=== PATIENT | female | born 1970 | race Hispanic/Latino ===

== ENCOUNTER 2019-08-20 22:51 | Emergency (ER) | payer SELFPAY ==
[2019-08-20] MEDS ORDERED: SODIUM CHLORIDE 0.9% 1000 ML 1,000 ML IV ONE (23:08)
--- NOTE | 2019-08-20 23:15 | Emergency Department Report ---
ED General Adult HPI - General Stated complaint: FLU SYMPTOMS Time Seen by Provider: 08/20/19 23:07 Source: patient, old records reviewed Mode of arrival: Ambulatory Limitations: No Limitations - History of Present Illness Initial comments: Ms. Nj is a 48 yo female with history of schizoaffective disorder bipolar type and neuropathy who presents from [facility] for elevated heart rate in the 130s- 150s prior to arrival. She is currently on involuntary hold 1013 for acute psychosis. She has had a back pain generalized malaise. I have reviewed outpatient labs obtained 2 days ago, notable for hypokalemia 3.0 and anion gap 21 urinalysis appeared contaminated.Tox drug screen normal. normal. Had a fever 100.1 F at [facility] according to nurse report given Tylenol 650 mg prior to arrival. Normally takes gabapentin for neuropathic pain Medications include Seroquel Cymbalta Depakote -: Gradual, days(s) (1) Location: chest (fast heartbeat), back Consistency: constant Improves with: none Worsens with: none Associated Symptoms: headaches, malaise Treatments Prior to Arrival: none - Related Data Allergies Allergy/AdvReac Type Severity Reaction Status Date / Time No Known Allergies Allergy Unverified 08/20/19 23:32 ED Review of Systems ROS: Stated complaint: FLU SYMPTOMS Other details as noted in HPI Comment: All other systems reviewed and negative Constitutional: malaise ENT: throat pain Respiratory: cough Gastrointestinal: nausea, diarrhea Neurological: headache ED Past Medical Hx - Past Medical History Previous Medical History?: Yes Additional medical history: Schizoaffective disorder bipolar type, neuropathy - Surgical History Past Surgical History?: Yes Additional Surgical History: Breasts lift 2 ED Physical Exam - General General appearance: alert, in no apparent distress - Head Head exam: Present: atraumatic, normocephalic - Eye Eye exam: Present: normal appearance. Absent: scleral icterus, conjunctival injection - ENT ENT exam: Present: mucous membranes moist - Neck Neck exam: Present: normal inspection, full ROM - Respiratory Respiratory exam: Present: normal lung sounds bilaterally. Absent: respiratory distress, wheezes, rales, rhonchi - Cardiovascular Cardiovascular Exam: Present: normal rhythm, tachycardia. Absent: normal heart sounds, systolic murmur, diastolic murmur, rubs, gallop - GI/Abdominal GI/Abdominal exam: Present: soft, normal bowel sounds. Absent: distended, tenderness, guarding, rebound - Extremities Exam Extremities exam: Present: normal inspection - Neurological Exam Neurological exam: Present: alert, oriented X3 - Psychiatric Psychiatric exam: Present: normal mood, flat affect - Skin Skin exam: Present: warm, dry, intact, normal color. Absent: rash ED Course Vital Signs 08/20/19 08/20/19 08/20/19 23:14 23:30 23:35 Temperature 99.2 F Respiratory Rate Blood Pressure 95/65 O2 Sat by Pulse 98 98 Oximetry 08/21/19 08/21/19 08/21/19 00:00 00:40 01:00 Temperature Respiratory Rate Blood Pressure 88/58 95/65 95/65 O2 Sat by Pulse 100 100 Oximetry 08/21/19 08/21/19 08/21/19 01:15 01:30 02:00 Temperature Respiratory 18 Rate Blood Pressure 88/58 117/76 O2 Sat by Pulse 100 100 Oximetry 08/21/19 08/21/19 02:30 03:00 Temperature Respiratory Rate Blood Pressure 117/79 117/79 O2 Sat by Pulse 99 Oximetry ED Medical Decision Making - Lab Data Result diagrams: 08/20/19 23:19 08/20/19 23:19 Laboratory Results - last 24 hr 08/20/19 08/20/19 08/20/19 23:19 23:19 23:19 WBC 9.3 RBC 4.39 Hgb 13.4 Hct 39.8 MCV 91 MCH 31 MCHC 34 RDW 14.7 Plt Count 234 Lymph % (Auto) 13.7 [place] % (Auto) 4.3 Eos % (Auto) 0.0 Baso % (Auto) 0.3 Lymph # 1.3 [place] # 0.4 Eos # 0.0 Baso # 0.0 Seg Neutrophils % 81.7 H Seg Neutrophils # 7.6 D-Dimer Sodium 138 Potassium 3.4 L Chloride 100.4 Carbon Dioxide 19 L Anion Gap 22 BUN 17 Creatinine 0.7 Estimated GFR > 60 BUN/Creatinine Ratio 24 Glucose 108 H Calcium 9.1 Total Bilirubin 0.40 AST 16 ALT 7 Alkaline Phosphatase 47 Total Protein 6.6 Albumin 4.2 Albumin/Globulin Ratio 1.8 TSH Urine Color Urine Turbidity Urine pH Ur Specific [place] Urine Protein Urine Glucose (UA) Urine Ketones Urine Blood Urine Nitrite Ur Reducing Substances Urine Bilirubin Urine Ictotest Urine Urobilinogen Ur Leukocyte Esterase Urine WBC (Auto) Urine RBC (Auto) U Epithel Cells (Auto) Urine Bacteria (Auto) Hyaline Casts Urine Mucus Urine Opiates Screen Urine Methadone Screen Ur Barbiturates Screen Valproic Acid 57.9 Ur Phencyclidine Scrn Ur Amphetamines Screen U Benzodiazepines Scrn Urine Cocaine Screen U Marijuana (THC) Screen Drugs of Abuse Note Influenza A (Rapid) Influenza B (Rapid) 08/20/19 08/20/19 08/21/19 23:19 Unknown 01:07 WBC RBC Hgb Hct MCV MCH MCHC RDW Plt Count Lymph % (Auto) [place] % (Auto) Eos % (Auto) Baso % (Auto) Lymph # [place] # Eos # Baso # Seg Neutrophils % Seg Neutrophils # D-Dimer 1072.96 H Sodium Potassium Chloride Carbon Dioxide Anion Gap BUN Creatinine Estimated GFR BUN/Creatinine Ratio Glucose Calcium Total Bilirubin AST ALT Alkaline Phosphatase Total Protein Albumin Albumin/Globulin Ratio TSH 4.030 Urine Color Urine Turbidity Urine pH Ur Specific [place] Urine Protein Urine Glucose (UA) Urine Ketones Urine Blood Urine Nitrite Ur Reducing Substances Urine Bilirubin Urine Ictotest Urine Urobilinogen Ur Leukocyte Esterase Urine WBC (Auto) Urine RBC (Auto) U Epithel Cells (Auto) Urine Bacteria (Auto) Hyaline Casts Urine Mucus Urine Opiates Screen Urine Methadone Screen Ur Barbiturates Screen Valproic Acid Ur Phencyclidine Scrn Ur Amphetamines Screen U Benzodiazepines Scrn Urine Cocaine Screen U Marijuana (THC) Screen Drugs of Abuse Note Influenza A (Rapid) Negative Influenza B (Rapid) Negative 08/21/19 08/21/19 01:30 01:30 WBC RBC Hgb Hct MCV MCH MCHC RDW Plt Count Lymph % (Auto) [place] % (Auto) Eos % (Auto) Baso % (Auto) Lymph # [place] # Eos # Baso # Seg Neutrophils % Seg Neutrophils # D-Dimer Sodium Potassium Chloride Carbon Dioxide Anion Gap BUN Creatinine Estimated GFR BUN/Creatinine Ratio Glucose Calcium Total Bilirubin AST ALT Alkaline Phosphatase Total Protein Albumin Albumin/Globulin Ratio TSH Urine Color Yellow Urine Turbidity Clear Urine pH 5.0 Ur Specific [place] 1.008 Urine Protein <15 mg/dl Urine Glucose (UA) Neg Urine Ketones Neg Urine Blood Neg Urine Nitrite Neg Ur Reducing Substances Not Reportable Urine Bilirubin Neg Urine Ictotest Not Reportable Urine Urobilinogen < 2.0 Ur Leukocyte Esterase Neg Urine WBC (Auto) 2.0 Urine RBC (Auto) 3.0 U Epithel Cells (Auto) 1.0 Urine Bacteria (Auto) 2+ Hyaline Casts 1 Urine Mucus Few Urine Opiates Screen Presumptive negative Urine Methadone Screen Presumptive negative Ur Barbiturates Screen Presumptive negative Valproic Acid Ur Phencyclidine Scrn Presumptive negative Ur Amphetamines Screen Presumptive negative U Benzodiazepines Scrn Presumptive negative Urine Cocaine Screen Presumptive negative U Marijuana (THC) Screen Presumptive negative Drugs of Abuse Note Disclamer Influenza A (Rapid) Influenza B (Rapid) - EKG Data 08/20/19 23:39 EKG obtained 2336 Sinus tachycardia rate 125 bpm normal axis prolonged QT interval no ST elevation nonspecific T wave pattern - Radiology Data Radiology results: report reviewed - Medical Decision Making Ms. Nj presents with tachycardia. Extensive evaluation in the ED ruled out sepsis, thyrotoxicosis, PE, infection such UTI, pneumonia, flu, suspect medication withdrawal ?gabapentin. Transferred back to [facility] and pain medication did improved HR in the ED Workup otherwise negative for the exception of mildly elevated d-dimer Critical care attestation.: If time is entered above; I have spent that time in minutes in the direct care of this critically ill patient, excluding procedure time. ED Disposition Clinical Impression: Tachycardia Disposition: DC/TX-70 ANOTHER TYPE HLTHCARE Is pt being admited?: No Does the pt Need Aspirin: No Condition: Stable Additional Instructions: Extensive workup negative for acute disease entity. Suspect drug withdrawal. Ms. Nj has been dependent on gabapentin.
--- NOTE | 2019-08-20 23:33 | XRay Report ---
CHEST 1 VIEW, 08/20/2019 11:09 PM CLINICAL INFORMATION/INDICATION: Chest pain COMPARISON: None FINDINGS: SUPPORT DEVICES: None. HEART: The cardiac silhouette is normal in size. LUNGS/PLEURA: The lungs are clear of focal airspace disease or significant pleural effusion. ADDITIONAL FINDINGS: No additional acute findings. IMPRESSION: 1. No evidence of acute cardiopulmonary process. Signer Name: Lorraine Funes MD Signed: 08/20/2019 11:28 PM Workstation Name: [id number]
[2019-08-20] MEDS ORDERED: ACETAMINOPHEN 500 MG TAB PO ONE (23:40)
[2019-08-20] MEDS ORDERED: IBUPROFEN 800 MG TAB PO ONE (23:44)
[2019-08-20] MEDS ORDERED: IBUPROFEN 800 MG TAB ONE (23:47)
[2019-08-20 23:50] LABS: Basophils % (Auto) 0.3 % (0.0-1.8); Hematocrit 39.8 % (30.3-42.9); Hemoglobin 13.4 gm/dl (10.1-14.3); Lymphocytes # (Auto) 1.3 K/mm3 (1.2-5.4); Lymphocytes % (Auto) 13.7 % (13.4-35.0); Mean Corpuscular HGB Conc 34 % (30-34); Mean Corpuscular Volume 91 fl (79-97); Monocytes # (Auto) 0.4 K/mm3 (0.0-0.8); Monocytes % (Auto) 4.3 % (0.0-7.3); Platelet Count 234 K/mm3 (140-440); Red Blood Count 4.39 M/mm3 (3.65-5.03); Red Cell Distribution Width 14.7 % (13.2-15.2)
[2019-08-21 00:11] LABS: Alanine Aminotransferase 7 units/L (7-56); Albumin 4.2 g/dL (3.9-5); BUN/Creatinine Ratio 24; Blood Urea Nitrogen 17 mg/dL (7-17); Calcium 9.1 mg/dL (8.4-10.2); Hemolysis Index 3
[2019-08-21] MEDS ORDERED: ONDANSETRON 4 MG/2 ML INJ IV ONE (00:58)
[2019-08-21] MEDS ORDERED: MORPHINE 4 MG/1 ML INJ IV ONE (00:58)
[2019-08-21] MEDS ORDERED: SODIUM CHLORIDE 0.9% 1000 ML 1,000 ML IV ONE (00:58)
--- NOTE | 2019-08-21 02:16 | Cat Scan Report ---
CTA chest with contrast INDICATION : tachycardia. TECHNIQUE: Axial imaging performed through the chest, with contrast bolus timing set to maximize opa cification of the pulmonary arteries. 3-plane MIP reformatted images were obtained. All CT scans at this location are performed using CT dose reduction for ALARA by means of automated exposure control. 100 mL of intravenous contrast administered. COMPARISON: None. FINDINGS: Bolus: Contrast bolus timing is adequate. PTE: No filling defect is present to suggest PTE. Mediastinum: Heart and great vessels appear normal. No pathologic mediastinal adenopathy. Lungs: Lungs are clear. Upper abdomen: Limited imaging of the upper abdomen shows nothing acute. Bones: Degenerative changes in the spine with nothing acute. IMPRESSION: Negative for PTE. Clear lungs. Signer Name: Moises Gagnon MD Signed: 08/21/2019 2:12 AM Workstation Name: [id number]
[2019-08-21 02:27] LABS: Amphetamine Screen,Urine PRESUMPTIVE NEGATIVE; Bacteria,Urine 2+ /HPF (Negative); Benzodiazepines Screen,Urine PRESUMPTIVE NEGATIVE; Cannabinoid Screen,Urine PRESUMPTIVE NEGATIVE; Cocaine Screen,Urine PRESUMPTIVE NEGATIVE; Hyaline Casts,Urine 1 /LPF; Methadone Screen,Urine PRESUMPTIVE NEGATIVE; Mucus,Urine FEW /HPF; Opiate Screen,Urine PRESUMPTIVE NEGATIVE
[2019-08-21 02:32] LABS: Bilirubin,Urine NEG (Negative); Blood,Urine NEG (Negative); Color,Urine Yellow (Yellow); Protein,Urine <15 mg/dL mg/dL (Negative); Urobilinogen,Urine < 2.0 mg/dL (<2.0)
[2019-08-21 03:16] VITALS: BP 117/79
== END 2019-08-21 04:12 | disposition other institution (70) ==
LOC: ED 22:51
DX: R00.0 Tachycardia, unspecified (principal); F25.8 Other schizoaffective disorders; F31.9 Bipolar disorder, unspecified; Z98.890 Other specified postprocedural states
CPT/HCPCS: 36415; 71045; 71275; 80053; 80164; 80307; 81001; 84443; 85025; 85379; 87040; 87400; 93005; 93010; 96374; 96375; 99284; J2270; J2405; J7030; Q9967